=== PATIENT | male | born 1980 | race Caucasian/White ===

== ENCOUNTER 2025-09-18 11:27 | Emergency (ER) | payer OTHER ==
[2025-09-18] MEDS ORDERED: Lidocaine 1% (PF) 30 ML VIAL ONE (11:49)
[2025-09-18] MEDS ORDERED: Bacitracin 1 PK ONE (11:53)
== END 2025-09-18 12:25 | disposition home or self-care (01) ==
LOC: NAV ERS 11:27
DX: S61.011A Laceration without foreign body of right thumb without damage to nail, initial encounter (principal); S60.410A Abrasion of right index finger, initial encounter; F17.290 Nicotine dependence, other tobacco product, uncomplicated; Z23 Encounter for immunization; W27.0XXA Contact with workbench tool, initial encounter; Y93.89 Activity, other specified
CPT/HCPCS: 12001; 90471; 90715; J2003